=== PATIENT | female | born 1980 | race Caucasian/White ===

== ENCOUNTER 2019-12-26 15:29 | Emergency (ER) | payer SELFPAY ==
[~2019-12-26] VITALS: Ht 149.9 cm; Wt 45.0 kg
[2019-12-26 15:29] VITALS: BP 124/69
[2019-12-26 16:31] LABS: BASO # 0.1 x10^3/uL (0.0-0.2); BASO % 1 % (0-3); EOS % 0 % (0-3); HEMATOCRIT 31.9 % (36.0-47.0); LYMPH # 3.4 x10^3/uL (1.0-4.8); LYMPH % 31 % (24-48); MEAN CORPUSCULAR HEMOGLOBIN 23 pg (25-35); MEAN CORPUSCULAR HGB CONC 32 g/dL (31-37); MEAN CORPUSCULAR VOLUME 72 fL (79-100); MONO # 0.7 x10^3/uL (0.0-1.1); MONO % 7 % (0-9); NEUT # 6.9 x10^3/uL (1.8-7.7); NEUT % 62 % (31-73); PLATELET COUNT 483 x10^3/uL (140-400); RED BLOOD COUNT 4.45 x10^6/uL (3.50-5.40); RED CELL DISTRIBUTION WIDTH 18.6 % (11.5-14.5); WHITE BLOOD COUNT 11.2 x10^3/uL (4.0-11.0)
[2019-12-26 16:38] LABS: CALCIUM 8.9 mg/dL (8.5-10.1); CREATININE 0.9 mg/dL (0.6-1.0); GFR 70.1; POTASSIUM 3.8 mmol/L (3.5-5.1)
[2019-12-26 16:44] LABS: ALBUMIN 3.7 g/dL (3.4-5.0); ALBUMIN/GLOBULIN RATIO 1.1 (1.0-1.7); TOTAL BILIRUBIN 0.1 mg/dL (0.2-1.0); TOTAL PROTEIN 7.1 g/dL (6.4-8.2)
[2019-12-26] MEDS ORDERED: ONDANSETRON PF 4 MG/2 ML VIAL. IV ONE (16:45)
[2019-12-26] MEDS ORDERED: IV NORMAL SALINE 1000ML BAG 1,000 ML IV ONE (16:45)
[2019-12-26 16:47] LABS: ACETAMIN < 2 mcg/ml (10-30); ETHANOL < 10 mg/dL (0-10); SALIC 3.7 mg/dL (2.8-20.0)
[2019-12-26 16:58] LABS: BILIRUBIN,URINE NEGATIVE (NEG); CLARITY,URINE CLEAR; COLOR,URINE YELLOW; NITRITE,URINE POSITIVE (NEG); PROTEIN,URINE 100 mg/dL (NEG-TRACE); UROBILINOGEN,URINE 0.2 mg/dL (0.2 mg/dL)
[2019-12-26 17:01] LABS: ANISOCYTOSIS SLIGHT; HYPOCHROMIA MOD; MICROCYTOSIS MOD; POLYCHROMASIA SLIGHT
[2019-12-26 17:02] LABS: OVALOCYTES FEW; SCHISTOCYTES FEW
[2019-12-26 17:03] LABS: PLT ESTIMATE INCREASED (ADEQUATE)
[2019-12-26 17:05] LABS: HYALINE CASTS, URINE MODERATE /HPF; SQUAMOUS EPITHELIAL CELL,UR MOD /LPF
[2019-12-26 17:06] LABS: BACTERIA,URINE MANY /HPF (0-FEW)
--- NOTE | 2019-12-26 17:14 | RAD ---
CT HEAD WO CONTRAST History: Reason: seizure- witnessed / Spl. Instructions: / History: Comparison: None. Technique: Noncontrast CT imaging was performed of the head. Exposure: One or more of the following individualized dose reduction techniques were utilized for this examination: 1. Automated exposure control 2. Adjustment of the mA and/or kV according to patient size 3. Use of iterative reconstruction technique. Findings: No intracranial hemorrhage. No mass effect. No hydrocephalus. Extra-axial spaces are unremarkable. Imaged orbits are unremarkable. Imaged paranasal sinuses and mastoid air cells are clear. No acute calvarial fracture. Impression: 1. No acute intracranial abnormality. Electronically signed by: Carlos Gaspar DO (12/26/2019 5:11 PM) [facility]
--- NOTE | 2019-12-26 17:58 | EKG ---
[facility] [address] [place] [address] Test Date: 2019-12-26 Test Time: 15:32:41 Pat Name: FREDERICK NEAL Department: Room: Gender: F General Internist And Physician Leader: : 1980 Requested By: ANNA ALLEN Order Number: [id number] Reading MD: Measurements Intervals [place] Rate: 108 P: 46 MT: 164 QRS: 83 QRSD: 86 T: 51 QT: 330 QTc: 446 Interpretive Statements SINUS TACHYCARDIA NO SPECIFIC ECG ABNORMALITIES RI6.02 No previous ECG available for comparison
[2019-12-26 18:18] LABS: BARBITURATES NEG (NEG); BENZODIAZEPINES NEG (NEG); CANNABINOIDS NEG (NEG); COCAINE NEG (NEG); METHADONE NEG (NEG); OPIATES NEG (NEG); PHENCYCLIDINE NEG (NEG)
[2019-12-26 18:20] LABS: AMPHETAMINE/METHAMPHETAMINE POS (NEG)
--- NOTE | 2019-12-26 18:54 | PHYS DOC ---
Past Medical History Past Medical History: No Pertinent History (ANNA ALLEN APRN) Past Surgical History: No Surgical History (ANNA ALLEN APRN) Smoking Status: Current Every Day Smoker Alcohol Use: None Social History Narrative: H/O METH, XANAX, HYDROCODONE (ANNA ALLEN APRN) General Adult EDM: Chief Complaint: SEIZURE HPI: HPI: Patient is a 39 year old female is brought to the emergency department via EMS after witnessed seizure-like activity lasting 1 minute per staff at the [facility] where the patient is currently being treated for methamphetamine addiction. Patient reports that she last used methamphetamine approximately 6 days ago. She states that she felt funny and the next thing she knew she was on the floor. She denies any previous history of seizures. Patient states that she was not confused as to where she was after passing out. She just was not sure what happened. Patient states that she knew where she was and who she was. She denies any incontinence of bowel or bladder with the seizure-like activity. She denies any recent fever, cough, sore throat, body aches, fatigue, shortness of breath, numbness, tingling, weakness, or vision changes. She currently denies any headache or complaints of pain. (ANNA ALLEN APRN) Review of Systems: Review of Systems: Constitutional: Denies fever or chills. [] Eyes: Denies change in visual acuity. [] HENT: Denies nasal congestion or sore throat. [] Respiratory: Denies cough or shortness of breath. [] Cardiovascular: Denies chest pain or edema. [] GI: Denies abdominal pain, nausea, vomiting, or diarrhea. [] : Denies dysuria. [] Musculoskeletal: Denies back pain or joint pain. [] Integument: Denies rash. [] Neurologic: Denies headache; see HPI Psychiatric: Denies depression or anxiety; reports history of methamphetamine abuse [] (ANNA ALLEN APRN) Heart Score: Risk Factors: Risk Factors: DM, Current or recent (<one month) smoker, HTN, HLP, family history of CAD, obesity. Risk Scores: Score 0 - 3: 2.5% MACE over next 6 weeks - Discharge Home Score 4 - 6: 20.3% MACE over next 6 weeks - Admit for Clinical Observation Score 7 - 10: 72.7% MACE over next 6 weeks - Early Invasive Strategies (ANNA ALLEN APRN) Current Medications: Current Medications Medications (Trade) Dose Ordered Sig/Bianca Start Time Stop Time Status Last Admin Dose Admin Ondansetron HCl (Zofran) 4 mg 1X ONCE 12/26/19 16:45 12/26/19 17:00 DC 12/26/19 17:10 4 MG Sodium Chloride 1,000 ml @ 1,000 mls/hr 1X ONCE 12/26/19 16:45 12/26/19 17:44 DC 12/26/19 17:11 1,000 MLS/HR (ANNA ALLEN APRN) Allergies: Allergies: Allergies Coded Allergies Type Severity Reaction Last Updated Verified No Known Drug Allergies 12/26/19 No (ANNA ALLEN APRN) Physical Exam: PE: Constitutional: Well developed, well nourished, no acute distress, non-toxic appearance. [] HENT: Normocephalic, atraumatic, bilateral external ears normal, nose normal. [] Eyes: PERRLA, EOMI, conjunctiva normal, no discharge. [] Neck: Normal range of motion, supple, nontender, no stridor. [] Cardiovascular:Heart rate regular rhythm Lungs & Thorax: Respirations even and unlabored, no retractions, no respiratory distress Abdomen: soft, no tenderness Back: Nontender Skin: Warm, dry, no erythema, no rash. [] Extremities: No cyanosis, ROM intact, no edema. [] Neurologic: Alert and oriented X 3, no focal deficits noted. [] Psychologic: Affect normal, judgement normal, mood normal. [] (ANNA ALLEN APRN) Current Patient Data: Labs: Laboratory Tests Test 12/26/19 15:40 12/26/19 16:44 12/26/19 16:53 White Blood Count 11.2 x10^3/uL (4.0-11.0) H Red Blood Count 4.45 x10^6/uL (3.50-5.40) Hemoglobin 10.0 g/dL (12.0-15.5) L Hematocrit 31.9 % (36.0-47.0) L Mean Corpuscular Volume 72 fL (79-100) L Mean Corpuscular Hemoglobin 23 pg (25-35) L Mean Corpuscular Hemoglobin Concent 32 g/dL (31-37) Red Cell Distribution Width 18.6 % (11.5-14.5) H Platelet Count 483 x10^3/uL (140-400) H Neutrophils (%) (Auto) 62 % (31-73) Lymphocytes (%) (Auto) 31 % (24-48) Monocytes (%) (Auto) 7 % (0-9) Eosinophils (%) (Auto) 0 % (0-3) Basophils (%) (Auto) 1 % (0-3) Neutrophils # (Auto) 6.9 x10^3/uL (1.8-7.7) Lymphocytes # (Auto) 3.4 x10^3/uL (1.0-4.8) Monocytes # (Auto) 0.7 x10^3/uL (0.0-1.1) Eosinophils # (Auto) 0.0 x10^3/uL (0.0-0.7) Basophils # (Auto) 0.1 x10^3/uL (0.0-0.2) Platelet Estimate Increased (ADEQUATE) Polychromasia Slight Hypochromasia Mod Anisocytosis Slight Microcytosis Mod Ovalocytes Few Schistocytes Few Sodium Level 139 mmol/L (136-145) Potassium Level 3.8 mmol/L (3.5-5.1) Chloride Level 102 mmol/L (98-107) Carbon Dioxide Level 23 mmol/L (21-32) Anion Gap 14 (6-14) Blood Urea Nitrogen 12 mg/dL (7-20) Creatinine 0.9 mg/dL (0.6-1.0) Estimated GFR (Cockcroft-Gault) 70.1 BUN/Creatinine Ratio 13 (6-20) Glucose Level 120 mg/dL (70-99) H Calcium Level 8.9 mg/dL (8.5-10.1) Total Bilirubin 0.1 mg/dL (0.2-1.0) L Aspartate Amino Transferase (AST) 11 U/L (15-37) L Alanine Aminotransferase (ALT) 18 U/L (14-59) Alkaline Phosphatase 68 U/L (46-116) Total Protein 7.1 g/dL (6.4-8.2) Albumin 3.7 g/dL (3.4-5.0) Albumin/Globulin Ratio 1.1 (1.0-1.7) Salicylates Level 3.7 mg/dL (2.8-20.0) Salicylate Last Dose Date Unknown Salicylate Last Dose Time Unknown Acetaminophen Level < 2 mcg/ml (10-30) L Acetaminophen Last Dose Date Unknown Acetaminophen Last Dose Time Unknown Ethyl Alcohol Level < 10 mg/dL (0-10) Urine Collection Type Unknown Urine Color Yellow Urine Clarity Clear Urine pH 6.0 (<5.0-8.0) Urine Specific [place] 1.020 (1.000-1.030) Urine Protein 100 mg/dL (NEG-TRACE) Urine Glucose (UA) Negative mg/dL (NEG) Urine Ketones (Stick) Negative mg/dL (NEG) Urine Blood Negative (NEG) Urine Nitrite Positive (NEG) Urine Bilirubin Negative (NEG) Urine Urobilinogen Dipstick 0.2 mg/dL (0.2 mg/dL) Urine Leukocyte Esterase Negative (NEG) Urine RBC 1-2 /HPF (0-2) Urine WBC 1-4 /HPF (0-4) Urine Squamous Epithelial Cells Mod /LPF Urine Bacteria Many /HPF (0-FEW) Urine Hyaline Casts Moderate /HPF Urine Mucus Mod /LPF Urine Opiates Screen Neg (NEG) Urine Methadone Screen Neg (NEG) Urine Barbiturates Neg (NEG) Urine Phencyclidine Screen Neg (NEG) Urine Amphetamine/Methamphetamine Pos (NEG) Urine Benzodiazepines Screen Neg (NEG) Urine Cocaine Screen Neg (NEG) Urine Cannabinoids Screen Neg (NEG) Urine Ethyl Alcohol Neg (NEG) POC Urine HCG, Qualitative Hcg negative (Negative) Laboratory Tests 12/26/19 15:40 Laboratory Tests 12/26/19 15:40 Vital Signs: Vital Signs Date Time Temp Pulse Resp B/P (MAP) Pulse Ox O2 Delivery O2 Flow Rate FiO2 12/26/19 15:29 98.6 107 17 124/69 (87) 99 Room Air 98.6 (ANNA ALLEN APRN) EKG: EK-sinus tachycardia, rate 108, no STEMI read by Dr. Mason [] (ANNA ALLEN APRN) Radiology/Procedures: Radiology/Procedures: PROCEDURE: CT HEAD WO CONTRAST CT HEAD WO CONTRAST History: Reason: seizure- witnessed / Spl. Instructions: / History: Comparison: None. Technique: Noncontrast CT imaging was performed of the head. Exposure: One or more of the following individualized dose reduction techniques were utilized for this examination: 1. Automated exposure control 2. Adjustment of the mA and/or kV according to patient size 3. Use of iterative reconstruction technique. Findings: No intracranial hemorrhage. No mass effect. No hydrocephalus. Extra-axial spaces are unremarkable. Imaged orbits are unremarkable. Imaged paranasal sinuses and mastoid air cells are clear. No acute calvarial fracture. Impression: 1. No acute intracranial abnormality. [] (ANNA ALLEN APRN) Course & Med Decision Making: Course & Med Decision Making Pertinent Labs and Imaging studies reviewed. (See chart for details) 39-year-old female was presents to the emergency department via EMS after a seizure-like episode that happened. Patient described more of a syncopal episode. She was not confused upon arousal after the brief loss of consciousness. Patient states she just did not know what happened, she knew where sheAs she was. CMP revealed anemia with a hemoglobin of 10, and hematocrit 31.9, patient's i te blood cell count was 11.2 markable; CMP revealed a glucose of 120, otherwise unremarkable; UA is likely contaminated with many bacteria, moderate squamous cells, and 1-4 WBC, patient was asymptomatic; UDS was positive for methamphetamines the patient reported EKG was sinus tachycardia otherwise unremarkable. Patient was given a liter of normal saline and 4 mg of Zofran in the emergency department. Patient reported feeling better and her vital signs are stable throughout the emergency department visit. I encouraged patient to change positions slowly to follow-up with her primary care doctor for further evaluation, return to the ER symptoms worsen. Patient verbalized an understanding of home care, medications, follow-up, and return to ED instructions and was in agreement with the plan of care. (ANNA ALLEN CHOPPER OPERATOR) Samra Disclaimer: Samra Disclaimer: This electronic medical record was generated, in whole or in part, using a voice recognition dictation system. (ANNA ALLEN CHOPPER OPERATOR) Departure Departure Impression: Primary Impression: Episode of syncope Qualified Codes: R55 - Syncope and collapse Disposition: HOME, SELF-CARE Condition: STABLE Referrals: NO PCP (PCP) Patient Instructions: Syncope, [id number] Additional Instructions: Increase clear fluids, change positions slowly. Follow-up with your primary care doctor in 1 to 2 days. Return to the ER if your symptoms worsen. Justicifation of Admission Dx: Justifications for Admission: Justification of Admission Dx: N/A (ANNA ALLEN APRN) Attending Signature Attending Signature I have reviewed the PA/SLIDE DEVELOPER's note and plan of care. I was available for consultation as needed during the patient's visit in the emergency department. I agree with the clinical impression, plan, and disposition. (JOSE CESPEDES DO) ANNA ALLEN APRN Dec 26, 2019 18:54 JOSE CESPEDES DO Dec 29, 2019 01:39
--- NOTE | 2019-12-29 08:29 | PHYS DOC ---
Past Medical History Past Medical History: No Pertinent History Past Surgical History: No Surgical History Smoking Status: Current Every Day Smoker Alcohol Use: None Social History Narrative: H/O METH, XANAX, HYDROCODONE General Adult EDM: Chief Complaint: SEIZURE HPI: HPI: 39-year-old female past medical history of meth use EMR was reviewed and patient was seen here in the ED 3 days ago with concern for seizure-like activity with methadone intoxication. Had a contaminated urinalysis sample, CT of the head unremarkable. Urine drug screen positive for amphetamines. Review of Systems: Review of Systems: Constitutional: Denies fever or chills. [] Eyes: Denies change in visual acuity. [] HENT: Denies nasal congestion or sore throat. [] Respiratory: Denies cough or shortness of breath. [] Cardiovascular: Denies chest pain or edema. [] GI: Denies abdominal pain, nausea, vomiting, bloody stools or diarrhea. [] : Denies dysuria. [] Musculoskeletal: Denies back pain or joint pain. [] Integument: Denies rash. [] Neurologic: Denies headache, focal weakness or sensory changes. [] Endocrine: Denies polyuria or polydipsia. [] Lymphatic: Denies swollen glands. [] Psychiatric: Denies depression or anxiety. [] Heart Score: Risk Factors: Risk Factors: DM, Current or recent (<one month) smoker, HTN, HLP, family history of CAD, obesity. Risk Scores: Score 0 - 3: 2.5% MACE over next 6 weeks - Discharge Home Score 4 - 6: 20.3% MACE over next 6 weeks - Admit for Clinical Observation Score 7 - 10: 72.7% MACE over next 6 weeks - Early Invasive Strategies Current Medications: Current Medications Medications (Trade) Dose Ordered Sig/Bianca Start Time Stop Time Status Last Admin Dose Admin Ondansetron HCl (Zofran) 4 mg 1X ONCE 12/26/19 16:45 12/26/19 17:00 DC 12/26/19 17:10 4 MG Sodium Chloride 1,000 ml @ 1,000 mls/hr 1X ONCE 12/26/19 16:45 12/26/19 17:44 DC 12/26/19 17:11 1,000 MLS/HR Allergies: Allergies: Allergies Coded Allergies Type Severity Reaction Last Updated Verified No Known Drug Allergies 12/26/19 No Physical Exam: PE: Constitutional: Well developed, well nourished, no acute distress, non-toxic appearance. [] HENT: Normocephalic, atraumatic, bilateral external ears normal, oropharynx moist, no oral exudates, nose normal. [] Eyes: PERRLA, EOMI, conjunctiva normal, no discharge. [] Neck: Normal range of motion, no tenderness, supple, no stridor. [] Cardiovascular:Heart rate regular rhythm, no murmur [] Lungs & Thorax: Bilateral breath sounds clear to auscultation [] Abdomen: Bowel sounds normal, soft, no tenderness, no masses, no pulsatile masses. [] Skin: Warm, dry, no erythema, no rash. [] Back: No tenderness, no CVA tenderness. [] Extremities: No tenderness, no cyanosis, no clubbing, ROM intact, no edema. [] Neurologic: Alert and oriented X 3, normal motor function, normal sensory function, no focal deficits noted. [] Psychologic: Affect normal, judgement normal, mood normal. [] Current Patient Data: Labs: Microbiology 12/26/19 Urine Culture - Preliminary, Resulted Vital Signs: Vital Signs Date Time Temp Pulse Resp B/P (MAP) Pulse Ox O2 Delivery O2 Flow Rate FiO2 12/26/19 15:29 98.6 107 17 124/69 (87) 99 Room Air 98.6 EKG: EKG: [] Radiology/Procedures: Radiology/Procedures: [] Course & Med Decision Making: Course & Med Decision Making Pertinent Labs and Imaging studies reviewed. (See chart for details) PLEASE REJECT THIS NOTE-IT IS INCOMPLETE. ANOTHER NOTE WAS FINALIZED. Samra Disclaimer: Samra Disclaimer: This electronic medical record was generated, in whole or in part, using a voice recognition dictation system. Departure Departure Impression: Primary Impression: Episode of syncope Qualified Codes: R55 - Syncope and collapse Disposition: 01 HOME/RESIDENCE PRIOR TO ADM Condition: STABLE Referrals: NO PCP (PCP) Patient Instructions: Syncope, [id number] Additional Instructions: Increase clear fluids, change positions slowly. Follow-up with your primary care doctor in 1 to 2 days. Return to the ER if your symptoms worsen. Justicifation of Admission Dx: Justifications for Admission: Justification of Admission Dx: N/A IVY AGUIAR DO Dec 29, 2019 08:28
== END 2019-12-26 20:00 | disposition home or self-care (01) ==
LOC: ER 15:29
DX: R55 Syncope and collapse (principal); R56.9 Unspecified convulsions; F15.10 Other stimulant abuse, uncomplicated; F17.200 Nicotine dependence, unspecified, uncomplicated
CPT/HCPCS: 36415; 70450; 80053; 80307; 80329; 81001; 81025; 85025; 87086; 93005; 96361; 96374; 99285; G0480; J2405; J7030; 87077; 87186

== ENCOUNTER 2019-12-29 08:20 | Emergency (ER) | payer SELFPAY ==
[~2019-12-29] VITALS: Ht 149.9 cm; Wt 50.0 kg
--- NOTE | 2019-12-29 08:38 | PHYS DOC ---
Past Medical History Past Medical History: No Pertinent History Past Surgical History: No Surgical History Smoking Status: Current Every Day Smoker Alcohol Use: None General Adult HPI: HPI: 39-year-old female past medical history of meth, opiod and benzo abuse, presents to the ED from rehab facility ([facility]), concern for witnessed seizure-like activity that occurred while patient was in the lunchroom. Patient denies any aura, preceding symptoms, no associated chest pain or dyspnea. Last menstrual period was 1 week ago. Does report some nausea for the past few days and states she does not remember anything from this morning. She has been sober from methamphetamines, oxycodone, hydrocodone and benzos for 8 days. No alcohol abuse. Reports her grandmother has a seizure disorder but patient has never been diagnosed with any seizures. On no AC. EMR was reviewed and patient was seen here in the ED 3 days ago with concern for seizure-like activity with methadone intoxication. Had a contaminated urinalysis sample with positive nitrites, CT of the head unremarkable. Urine drug screen positive for amphetamines. Review of Systems: Review of Systems: Constitutional: Denies fever or chills. [] Eyes: Denies change in visual acuity. [] HENT: Denies nasal congestion or sore throat. [] Respiratory: Denies cough or shortness of breath. [] Cardiovascular: Denies chest pain or edema. [] GI: Denies abdominal pain, nausea, vomiting, bloody stools or diarrhea. [] : Denies dysuria. [] Musculoskeletal: Denies back pain or joint pain. [] Integument: Denies rash. [] Neurologic: Denies headache, focal weakness or sensory changes. [] Endocrine: Denies polyuria or polydipsia. [] Lymphatic: Denies swollen glands. [] Psychiatric: Denies depression or anxiety. [] Heart Score: Risk Factors: Risk Factors: DM, Current or recent (<one month) smoker, HTN, HLP, family history of CAD, obesity. Risk Scores: Score 0 - 3: 2.5% MACE over next 6 weeks - Discharge Home Score 4 - 6: 20.3% MACE over next 6 weeks - Admit for Clinical Observation Score 7 - 10: 72.7% MACE over next 6 weeks - Early Invasive Strategies Allergies: Allergies: Allergies Coded Allergies Type Severity Reaction Last Updated Verified No Known Drug Allergies 12/26/19 No Physical Exam: PE: Constitutional: Well developed, well nourished, no acute distress, non-toxic upkept appearance. [] HENT: Normocephalic, atraumatic, bilateral external ears normal, oropharynx moist, no oral exudates, nose normal. [] Eyes: PERRLA, EOMI, conjunctiva normal, no discharge, abrasion to right lateral tongue Neck: Normal range of motion, no tenderness, supple, no stridor. [] Cardiovascular:Heart rate regular rhythm, no murmur [] Lungs & Thorax: Bilateral breath sounds clear to auscultation [] Abdomen: Bowel sounds normal, soft, no tenderness, no masses, no pulsatile masses. [] Skin: Warm, dry, no erythema, no rash. [] Back: No tenderness, no CVA tenderness. [] Extremities: No tenderness, no cyanosis, no clubbing, ROM intact, no edema. [] Neurologic: Alert and oriented X 3, normal motor function, normal sensory function, no focal deficits noted. [] Psychologic: Affect normal, judgement normal, mood normal. [] EKG: EKG: Sinus rhythm at 88 bpm, left axis deviation, unremarkable intervals, T wave inversion aVL, no ST elevations or ST depressions Radiology/Procedures: Radiology/Procedures: IMAGING REPORT Signed PATIENT: FREDERICK NEAL ACCOUNT: [id number] : 1980 LOCATION: ER AGE: 39 SEX: F EXAM STATUS: REG ER ORD. PHYSICIAN: IVY AGUIAR DO REASON: seizure? PROCEDURE: CT HEAD WO CONTRAST EXAM: CT Head without IV contrast INDICATION: Reason: seizure? / Spl. Instructions: / History: TECHNIQUE: Multi-detector row CT images were obtained of the head without the use of IV contrast. All CT scans performed at this facility utilize dose optimization techniques as appropriate to the exam, including the following: Automated exposure control and adjustment of the mA and/or KV according to patient size (this includes techniques or standardized protocols for targeted exams where dose is indication/reason for exam). COMPARISON: 12/26/[address] FINDINGS: BRAIN PARENCHYMA: No evidence of acute intraparenchymal hemorrhage or infarct. No abnormal parenchymal density or mass. VENTRICLES & EXTRA-AXIAL SPACES: Ventricles are within normal limits. Basilar cisterns are patent. No pathologic extra-axial fluid collection or mass. ORBITS: Orbital contents are unremarkable. SINUSES: Visualized paranasal sinuses and mastoid air cells are clear. OSSEOUS & SOFT TISSUES: Calvarium and skull base are intact. IMPRESSION: No acute intracranial pathology. Electronically signed by: Joselyn Moyer MD (12/29/2019 9:46 AM) [id number] DICTATED and SIGNED BY: JOSELYN MOYER MD DATE: 12/29/19945 IMAGING REPORT Signed PATIENT: FREDERICK NEAL ACCOUNT: [id number] : 1980 LOCATION: ER AGE: 39 SEX: F EXAM STATUS: PRE ER ORD. PHYSICIAN: IVY AGUIAR DO REASON: seizure PROCEDURE: CHEST AP ONLY EXAM: CHEST AP ONLY 12/29/2019 8:30 AM CLINICAL INDICATION: Seizure COMPARISON: None TECHNIQUE: AP chest radiograph FINDINGS: The heart and mediastinum are normal. Lungs are well-expanded and clear. No consolidation, pleural effusion, or pneumothorax. Pulmonary vascularity is normal. The thoracic skeleton is intact. IMPRESSION: Normal chest radiograph. Electronically signed by: Nicole Gruber MD (12/29/2019 8:42 AM) [id number] DICTATED and SIGNED BY: NICOLE GRUBER MD DATE: 12/29/19 08 Course & Med Decision Making: Course & Med Decision Making Pertinent Labs and Imaging studies reviewed. (See chart for details) Concern for benzodiazepine withdrawal seizures (onset is usually several days to a week), not witnessed seizures in ed. CT of the head unremarkable. Chest x-ray with no acute process. Drug screen is negative. Patient has abstained from benzodiazepines for the past 8 days, normally takes 3 mg xanax daily. Will prescribe a very short dose of benzos and encourage patient to follow-up with her primary care physician. I did discuss admission but patient declined and requests outpatient management first. Patient is been observed in the ED for prolonged period with no recurrence of seizures. WIll also treat for UTI given prior UA and today's UA results. Strict ED return precautions were given for recurrent seizures or head injury. Encouraged urgent outpatient follow-up with PMD and addiction or pain management/neurology. Life-threatening processes were considered but are low suspicion at this time, given history and physical exam. Pt was educated on all prescription medications and adverse effects. All patient's questions were answered and pt was stable at time of discharge. Differential includes intracranial hemorrhage, diffuse axonal injury, spinal cord syndrome, unstable cervical fracture or SCIWORA, fractures or joint dislocations, neurovascular injuries, organ injury or laceration, pneumothorax, pneumoperitoneum, pericardial tamponade, unstable pelvic fracture, compartment syndrome, flail chest or respiratory distress, burn injury or asphyxiation, status epilepticus I spoken with the patient and her caregivers. I explained the patient's condition, diagnoses and treatment plan based on the information available to me at this time. I have answered the patient and her caregiver's questions and addressed any concerns. The patient and her caregivers have a good understanding of patient's diagnosis, condition and treatment plan as can be expected at this point. Vital signs have been stable. Patient's condition is stable and appropriate for discharge from the emergency department. Patient will pursue further outpatient evaluation with primary care physician or other designated or consulting physician as outlined in the discharge instructions. The patient and/or caregivers are agreeable to this plan of care and follow-up instructions have been explained in detail. The patient and/or c aregivers have received these instructions in written form and have expressed an understanding of the discharge instructions. The patient and/or caregivers are aware that any significant change of condition or worsening of symptoms should prompt immediate return to this or the closest emergency department or call to 911. K-TRACS reviewed -pt routinely filling xanax 0.5mg (#30) monthy [address] Dr. Mckenna Jurado in [place], last fill was 12/07. UDS negative for benzos today and 12/25. Pt had been discharged prior to looking this up-would recommend NO FURTHER benzo prescriptions for this pt. -pt to followup with pmd. Samra Disclaimer: Samra Disclaimer: This electronic medical record was generated, in whole or in part, using a voice recognition dictation system. Departure Departure Impression: Primary Impression: Benzodiazepine withdrawal Additional Impression: UTI (urinary tract infection) Disposition: HOME, SELF-CARE Condition: STABLE Referrals: NO PCP (PCP) Patient Instructions: Benzodiazepine Withdrawal, Dysuria Additional Instructions: Rod Kitchen MD Primary Specialties Pain Management [facility] Address: [address] [facility] [address] [place] [address] Michael Balderrama MD Primary Special[facility] Neurology [facility] Address: [address] [facility] [address] [place] [address] Scripts Phenazopyridine Hcl (PHENAZOPYRIDINE HCL) 200 Mg Tablet 1 TAB PO TID for urinary discomfort for 2 Days, #6 TAB 0 Refills after food Prov: IVY AGUIAR DO 12/29/19 Nitrofurantoin Monohyd/M-Cryst (MACROBID 100 MG CAPSULE) 100 Mg Capsule 1 CAP PO BID for 7 Days, #14 CAP 0 Refills Prov: IVY AGUIAR DO 12/29/19 Alprazolam (XANAX) 0.25 Mg Tablet 0.25 MG PO TID PRN PRN for withdrawal, #15 TAB 0 Refills Prov: IVY AGUIAR DO 12/29/19 Justicifation of Admission Dx: Justifications for Admission: Justification of Admission Dx: N/A IVY AGUIAR DO Dec 29, 2019 08:38
--- NOTE | 2019-12-29 08:45 | RAD ---
EXAM: CHEST AP ONLY 12/29/2019 8:30 AM CLINICAL INDICATION: Seizure COMPARISON: None TECHNIQUE: AP chest radiograph FINDINGS: The heart and mediastinum are normal. Lungs are well-expanded and clear. No consolidation, pleural effusion, or pneumothorax. Pulmonary vascularity is normal. The thoracic skeleton is intact. IMPRESSION: Normal chest radiograph. Electronically signed by: Nicole Gruber MD (12/29/2019 8:42 AM) [id number]
[2019-12-29 08:57] LABS: HEMATOCRIT 30.6 % (36.0-47.0); HEMOGLOBIN 9.8 g/dL (12.0-15.5); MEAN CORPUSCULAR HEMOGLOBIN 23 pg (25-35); MEAN CORPUSCULAR VOLUME 72 fL (79-100); RED BLOOD COUNT 4.28 x10^6/uL (3.50-5.40); WHITE BLOOD COUNT 6.8 x10^3/uL (4.0-11.0)
[2019-12-29 08:58] LABS: BASO # 0.1 x10^3/uL (0.0-0.2); BASO % 1 % (0-3); EOS % 0 % (0-3); LYMPH # 1.8 x10^3/uL (1.0-4.8); LYMPH % 27 % (24-48); MEAN CORPUSCULAR HGB CONC 32 g/dL (31-37); MONO # 0.4 x10^3/uL (0.0-1.1); MONO % 6 % (0-9); NEUT # 4.5 x10^3/uL (1.8-7.7); NEUT % 66 % (31-73); PLATELET COUNT 498 x10^3/uL (140-400); RED CELL DISTRIBUTION WIDTH 18.2 % (11.5-14.5)
[2019-12-29] MEDS ORDERED: IV NORMAL SALINE 1000ML BAG 1,000 ML IV ONE (09:00)
[2019-12-29] MEDS ORDERED: ONDANSETRON PF 4 MG/2 ML VIAL. IVP ONE (09:00)
[2019-12-29 09:08] LABS: CALCIUM 8.5 mg/dL (8.5-10.1); CREATININE 0.9 mg/dL (0.6-1.0); GFR 70.1
[2019-12-29 09:09] LABS: ALBUMIN 3.4 g/dL (3.4-5.0); TOTAL BILIRUBIN 0.2 mg/dL (0.2-1.0); TOTAL PROTEIN 6.9 g/dL (6.4-8.2)
[2019-12-29 09:16] LABS: BILIRUBIN,URINE NEGATIVE (NEG); CLARITY,URINE CLEAR; COLOR,URINE YELLOW; NITRITE,URINE NEGATIVE (NEG); PROTEIN,URINE 30 mg/dL (NEG-TRACE); UROBILINOGEN,URINE 0.2 mg/dL (0.2 mg/dL)
--- NOTE | 2019-12-29 09:29 | EKG ---
[facility] [address] [place] [address] Test Date: 2019-12-29 Test Time: 09:21:02 Pat Name: FREDERICK NEAL Department: Room: Gender: F Bridge Crane Operator: : 1980 Requested By: IVY AGUIAR Order Number: [id number] Reading MD: Measurements Intervals [place] Rate: 88 P: 47 OK: 150 QRS: 85 QRSD: 84 T: 58 QT: 348 QTc: 424 Interpretive Statements SINUS RHYTHM NO SPECIFIC ECG ABNORMALITIES RI6.02 No previous ECG available for comparison
[2019-12-29 09:34] LABS: AMPHETAMINE/METHAMPHETAMINE NEG (NEG); BARBITURATES NEG (NEG); BENZODIAZEPINES NEG (NEG); CANNABINOIDS NEG (NEG); COCAINE NEG (NEG); METHADONE NEG (NEG); OPIATES NEG (NEG); PHENCYCLIDINE NEG (NEG)
[2019-12-29 09:35] LABS: SQUAMOUS EPITHELIAL CELL,UR MANY /LPF
[2019-12-29 09:36] LABS: BACTERIA,URINE MANY /HPF (0-FEW)
--- NOTE | 2019-12-29 09:48 | RAD ---
EXAM: CT Head without IV contrast INDICATION: Reason: seizure? / Spl. Instructions: / History: TECHNIQUE: Multi-detector row CT images were obtained of the head without the use of IV contrast. All CT scans performed at this facility utilize dose optimization techniques as appropriate to the exam, including the following: Automated exposure control and adjustment of the mA and/or KV according to patient size (this includes techniques or standardized protocols for targeted exams where dose is indication/reason for exam). COMPARISON: 12/26/[address] FINDINGS: BRAIN PARENCHYMA: No evidence of acute intraparenchymal hemorrhage or infarct. No abnormal parenchymal density or mass. VENTRICLES & EXTRA-AXIAL SPACES: Ventricles are within normal limits. Basilar cisterns are patent. No pathologic extra-axial fluid collection or mass. ORBITS: Orbital contents are unremarkable. SINUSES: Visualized paranasal sinuses and mastoid air cells are clear. OSSEOUS & SOFT TISSUES: Calvarium and skull base are intact. IMPRESSION: No acute intracranial pathology. Electronically signed by: Dinh Moyer MD (12/29/2019 9:46 AM) [id number]
[2019-12-29 12:06] LABS: PLT ESTIMATE INCREASED (ADEQUATE)
[2019-12-29 12:12] LABS: HYPOCHROMIA PRESENT
[2019-12-29 12:13] LABS: ANISOCYTOSIS SLIGHT; MICROCYTOSIS MOD; POLYCHROMASIA SLIGHT; TARGET CELLS FEW; TEAR DROP CELLS FEW
[2019-12-29 12:14] LABS: SCHISTOCYTES OCC
[2019-12-29] MEDS ORDERED: ALPR0.25 PO (13:37)
[2019-12-29 13:39] VITALS: BP 92/55
[2019-12-29] MEDS ORDERED: PHEN-444 PO (14:07)
[2019-12-29] MEDS ORDERED: NITR100C62 PO (14:07)
== END 2019-12-29 14:10 | disposition home or self-care (01) ==
LOC: ER 08:20
DX: F13.239 Sedative, hypnotic or anxiolytic dependence with withdrawal, unspecified (principal); N39.0 Urinary tract infection, site not specified; R51 Headache; F17.200 Nicotine dependence, unspecified, uncomplicated
CPT/HCPCS: 36415; 70450; 71045; 80053; 80307; 81001; 81025; 82550; 84484; 85025; 87086; 93005; 96361; 96374; 96375; 99285; J2060; J2405; J7030